=== PATIENT | female | born 2000 | race Caucasian/White ===

== ENCOUNTER → 2022-08-25 | Outpatient (CLI) | payer OTHER | LOC: CARD 08:20 | DX: Z00.00 Encounter for general adult medical examination without abnormal findings (principal); F32.A Depression, unspecified; R10.9 Unspecified abdominal pain; G43.909 Migraine, unspecified, not intractable, without status migrainosus; J45.909 Unspecified asthma, uncomplicated; E07.9 Disorder of thyroid, unspecified; E78.5 Hyperlipidemia, unspecified | CPT/HCPCS: 93005 ==